=== PATIENT | male | born 1970 | race Caucasian/White ===

== ENCOUNTER 2025-01-18 15:43 | Day surgery (SDC) | payer OTHER, SELFPAY ==
[2025-01-18] MEDS ORDERED: ONDANSETRON 4 MG/2 ML VIAL ONE ×2 (15:58→19:30)
[2025-01-18] MEDS ORDERED: MORPHINE 4 MG/ML SYR ONE ×2 (15:59→19:06)
[2025-01-18] MEDS ORDERED: TDAP (DIPHTH,PERTUSS(ACELL),TET VAC) 0.5 ML VIAL IMVAC ONE (15:59)
[2025-01-18] MEDS ORDERED: NA CHLORIDE 0.9% 100 ML ONE (16:00)
[2025-01-18] MEDS ORDERED: CEFAZOLIN SODIUM 2 GM/VIAL ONE (16:00)
--- NOTE | 2025-01-18 17:15 | RAD REPORT ---
EXAMINATION: XR Femur Left CLINICAL INDICATION: Male, 54 years old. laceration TECHNIQUE: 2 view radiograph of the left femur were obtained. COMPARISON: No prior exam. FINDINGS: No evidence of fracture or dislocation. Normal alignment. No evidence of arthropathy or oth er focal bone lesion. Soft tissue defect and adjacent swelling along the anterior medial thigh soft tissues. This could possibly be dissecting towards the anteromedial cortex of the left femur at the j unction of the middle and distal thirds, as seen on the lateral view. IMPRESSION: Soft tissue defect related to known laceration along the distal anteromedial thigh. No acute osseous abnormality.
--- NOTE | 2025-01-18 19:01 | RAD REPORT ---
EXAM: CT Lower Ext Angio HISTORY: [facility] MAIN laceration, need CTA of lower extremity COMPARISON: None TECHNIQUE: Multiple contiguous axial images were obtained a CTA of the left lower extremity with cont rast per angiography protocol. Sagittal and coronal 3-D MIP reformats were performed. One or more of the following dose reduction techniques were used: Automated exposure control, adjustment of the m A and kV according to patient size, and iterative reconstruction. Unless otherwise specified, incidental findings do not require dedicated imaging follow-up. FINDINGS: PELVIS AND SOFT TISSUES: Laceration involving the anteromedial distal left thigh. Gas locules extendi ng along the superficial aspect of the vastus medialis muscle. Other visualized soft tissues and pelvic contents are unremarkable. Included distal abdominal aorta: Normal caliber without evidence of dissection or aneurysmal dilatati on. Iliac vessels: Patent left common, external, and internal iliac arteries. PRINT WASHER: Patent SFA: Patent Deep femoral artery: Patent Popliteal artery: Patent Trifurcation of anterior and posterior tibial and peroneal arteries: Patent proximally. No evidence of dissection or contrast extravasation IMPRESSION: No evidence of vascular injury or dissection with attention to the included left lower extremity artis rial structures. Laceration involving the anteromedial distal left thigh as above.
--- NOTE | 2025-01-18 19:08 | ER ---
Nurse's Notes [facility] Name: Nakia Miranda Age: 54 yrs Sex: Male : 1970 Arrival Date: 01/18/2025 Time: 15:43 Bed 19 Private MD: Diagnosis: Complex laceration to the left thigh with muscle body involvement Presentation: 01/18 15:48 Chief complaint: Patient states: cut his left mid thigh with chain saw. Coronavirus iw screen: At this time, the client does not indicate any symptoms associated with coronavirus-19. Ebola Screen: No symptoms or risks identified at this time. Initial Sepsis Screen: Does the patient meet any 2 criteria? No. Patient's initial sepsis screen is negative. Does the patient have a suspected source of infection? No. Patient's initial sepsis screen is negative. Risk Assessment: Do you want to hurt yourself or someone else? Patient reports no desire to harm self or others. Onset of symptoms was January 18, 2025. 15:48 Method Of Arrival: Wheelchair iw 15:48 Acuity: ANDERSON 2 iw Triage Assessment: 19:30 General: Behavior is calm, cooperative, appropriate for age. Injury Description: me1 Laceration sustained to medial aspect of left thigh and left leg is jagged. Historical: - Allergies: 15:48 No Known Allergies; iw 15:49 No Known Allergies; ll1 - Home Meds: 15:48 None [Active]; iw - PMHx: 15:48 None; iw 15:49 None; ll1 - PSHx: 15:48 None; iw 15:49 None; ll1 - Immunization history:: Last tetanus immunization: unknown. - Infectious Disease History:: Denies. - Family history:: not pertinent. - Social history:: Smoking status: unknown. Screenin:50 [facility] ED Fall Risk Assessment (Adult) History of falling in the last 3 months, me1 including since admission No falls in past 3 months (0 pts) Confusion or Disorientation No (0 pts) Intoxicated or Sedated No (0 pts) Impaired Gait No (0 pts) Mobility Assist Device Used No (0 pt) Altered Elimination No (0 pt) Score/Fall Risk Level 0 - 2 = Low Risk Maintained a safe environment, Provided non-skid footwear, Hourly rounding (assess needs \T\ fall precautionary measures) done. Abuse screen: Denies threats or abuse. Nutritional screening: No deficits noted. Tuberculosis screening: No symptoms or risk factors identified. Assessment: 15:50 General: Appears uncomfortable. Pain: Complains of pain in left quadriceps Pain does me1 not radiate. Pain currently is 10 out of 10 on a pain scale. Quality of pain is described as sharp, Pain began suddenly, Is continuous. Neuro: Level of Consciousness is awake, alert, obeys commands, Oriented to person, place, time, situation, Appropriate for age. Cardiovascular: Patient's skin is warm and dry. Respiratory: Airway is patent Respiratory effort is even, unlabored, Respiratory pattern is regular, symmetrical. GI: No signs and/or symptoms were reported involving the gastrointestinal system. : No signs and/or symptoms were reported regarding the genitourinary system. EENT: No signs and/or symptoms were reported regarding the EENT system. Derm: Skin is healthy with good turgor, Skin is pink, warm \T\ dry. Musculoskeletal: Reports pain in left quadriceps. Injury Description: Laceration sustained to left quadriceps is jagged. Vital Signs: 16:14 Pain 5/10; me1 17:00 BP 116 / 66; Pulse 77; Resp 16; Pulse Ox 98% ; me1 18:00 BP 115 / 82; Pulse 82; Resp 16; Pulse Ox 100% ; me1 19:00 BP 145 / 81; Pulse 78; Resp 16; Pulse Ox 100% ; me1 16:14 Pain Scale: Adult me1 ED Course: 15:44 Patient arrived in ED. im 15:45 Areli Dawkins RN is Primary Nurse. me1 15:45 Kuldeep Pereyra MD is Attending Physician. rt 15:47 Inserted saline lock: 18 gauge in right antecubital area, using aseptic technique. iw ,using aseptic technique. IV inserted by Pauline MITCHELL Blood collected. Flushed with 10 mL NS. 15:48 Triage completed. iw 15:50 No provider procedures requiring assistance completed. me1 15:50 Dressings: 4X4s X 3; medial aspect of left thigh wet to dry dressing until seen by ty pshysician. Irrigation of laceration on medial aspect of left thigh irrigated with normal saline Betadine solution Patient tolerated well. 15:50 Patient has correct armband on for positive identification. Bed in low position. Call me1 light in reach. Side rails up X 1. Provided Education on: POC. Verbalized understanding.. Client placed on continuous cardiac and pulse oximetry monitoring. NIBP monitoring applied. Pulse ox on. NIBP on. 16:39 Femur Left XRAY In Process Unspecified. EDMS 18:00 Lower Ext Angio In Process Unspecified. EDMS 19:07 Storm Lee MD is Hospitalizing Provider. rt 19:30 Patient admitted, IV remains in place. me1 19:30 Arm band placed on Patient placed in an exam room. me1 Administered Medications: 16:08 Drug: Ondansetron IVP 4 mg IVP once; over 2 minutes Route: IVP; Site: right antecubital;me1 16:14 Follow up: Response: No adverse reaction me1 16:08 Drug: ceFAZolin IVPB 2 grams IVPB once over 30 mins; (mix in 100 mL NS) Route: IVPB; me1 Infused Over: 30 mins; Site: right antecubital; 19:28 Follow up: Response: No adverse reaction; IV Status: Completed infusion me1 16:08 Drug: Boostrix Tdap IM 0.5 ml IM once; as a single dose Route: IM; Site: right deltoid; me1 16:15 Follow up: Response: No adverse reaction me1 16:09 Drug: morphine IVP or IV 4 mg IVP once over 4 mins Route: IVP; Infused Over: 4 mins; me1 Site: right antecubital; 16:14 Follow up: Pain 5/10 Adult; Response: No adverse reaction; Pain is decreased me1 19:10 Drug: morphine IVP or IV 4 mg IVP once over 4 mins Route: IVP; Infused Over: 4 mins; me1 Site: right antecubital; 19:28 Follow up: Response: No adverse reaction me1 Medication: 15:50 Vaccine Information Statement (VIS) provided today. Questions and/or concerns me1 addressed. VIS edition date: June 29, 2021. Outcome: 19:08 Decision to Hospitalize by Provider. rt 19:30 Admitted to OR accompanied by nurse, via stretcher, with chart, Report called to me1 Mimi James 19:30 Condition: stable 19:30 Instructed on the need for admit, 19:32 Patient left the ED. me1 Signatures: Dispatcher [employer] Concetta Hwang, RN RN Pauline Holt RN RN 1 Kuldeep Pereyra MD MD rt Mendoza, Itzel im Eddleman, Michelle, RN RN me1 Ildefonso Hendrickson
--- NOTE | 2025-01-18 19:08 | EDPHYS ---
Physician Documentation [facility] Name: Nakia Miranda Age: 54 yrs Sex: Male : 1970 Arrival Date: 01/18/2025 Time: 15:43 Bed 19 Private MD: ED Physician Kuldeep Pereyra HPI: 01/18 20:07 This 54 yrs old Male presents to ER via Wheelchair with complaints of Laceration To Leg.rt 20:07 Patient presents to the ED with a laceration to the left thigh. Patient was injured rt with a chainsaw, states that was bleeding profusely, did place a tourniquet. Denies other injury, acute complaints, symptoms are moderate in severity, no other aggravating alleviating factors. Historical: - Allergies: 15:48 No Known Allergies; iw 15:49 No Known Allergies; ll1 - Home Meds: 15:48 None [Active]; iw - PMHx: 15:48 None; iw 15:49 None; ll1 - PSHx: 15:48 None; iw 15:49 None; ll1 - Immunization history:: Last tetanus immunization: unknown. - Infectious Disease History:: Denies. - Family history:: not pertinent. - Social history:: Smoking status: unknown. ROS: 20:07 Neuro: Negative for headache, weakness, numbness, tingling, and seizure, rt 20:07 MS/extremity: Positive for laceration, pain, Negative for 20:07 Skin: Positive for laceration(s), Exam: 20:07 Constitutional: This is a well developed, well nourished patient who is awake, alert, rt and in no acute distress. Head/Face: Normocephalic, atraumatic. Chest/axilla: Normal chest wall appearance and motion. Nontender with no deformity. No lesions are appreciated. Cardiovascular: Regular rate and rhythm with a normal S1 and S2. No gallops, murmurs, or rubs. Normal PMI, no JVD. No pulse deficits. Respiratory: Lungs have equal breath sounds bilaterally, clear to auscultation and percussion. No rales, rhonchi or wheezes noted. No increased work of breathing, no retractions or nasal flaring. Abdomen/GI: Soft, non-tender, with normal bowel sounds. No distension or tympany. No guarding or rebound. No evidence of tenderness throughout. Neuro: Awake and alert, GCS 15, oriented to person, place, time, and situation. Cranial nerves II-XII grossly intact. Motor strength 5/5 in all extremities. Sensory grossly intact. Cerebellar exam normal. Normal gait. 20:07 Musculoskeletal/extremity: There is a large deep roughly 10 cm laceration to the distal left thigh proximal to the knee. Multiple muscle bodies appear to be involved, no active bleeding, dorsalis pedis pulses intact, sensation is intact distally. There is somewhat weak extensor strength.. Vital Signs: 16:14 Pain 5/10; me1 17:00 BP 116 / 66; Pulse 77; Resp 16; Pulse Ox 98% ; me1 18:00 BP 115 / 82; Pulse 82; Resp 16; Pulse Ox 100% ; me1 19:00 BP 145 / 81; Pulse 78; Resp 16; Pulse Ox 100% ; me1 16:14 Pain Scale: Adult me1 MDM: 15:46 Medical Screening Exam initiated rt 20:07 Differential diagnosis: Complex laceration, tendon, muscle laceration, arterial bleed. rt Data reviewed: vital signs, nurses notes. Consideration of Admission/Observation Patient was admitted/placed on observation. 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 I considered the following discharge prescriptions or medication management in the emergency department Medications were administered in the Emergency Department. See MAR. Independent interpretation of the following test(s) in the Emergency Department X-Ray: My interpretation is No fracture seen on my interpretation of x-ray images. Counseling: I had a detailed discussion with the patient and/or guardian regarding the historical points, exam findings, and any diagnostic results supporting the discharge/admit diagnosis, radiology results, the need for further work-up and treatment in the hospital. Response to treatment: There is no appreciated change of the patient's symptoms at this time. 01/18 15:51 Order name: Femur Left XRAY; Complete Time: 19:05 rt 01/18 17:44 Order name: Lower Ext Angio; Complete Time: 19:05 EDMS Administered Medications: 16:08 Drug: Ondansetron IVP 4 mg IVP once; over 2 minutes Route: IVP; Site: right antecubital;me1 16:14 Follow up: Response: No adverse reaction me1 16:08 Drug: ceFAZolin IVPB 2 grams IVPB once over 30 mins; (mix in 100 mL NS) Route: IVPB; me1 Infused Over: 30 mins; Site: right antecubital; 19:28 Follow up: Response: No adverse reaction; IV Status: Completed infusion me1 16:08 Drug: Boostrix Tdap IM 0.5 ml IM once; as a single dose Route: IM; Site: right deltoid; me1 16:15 Follow up: Response: No adverse reaction me1 16:09 Drug: morphine IVP or IV 4 mg IVP once over 4 mins Route: IVP; Infused Over: 4 mins; me1 Site: right antecubital; 16:14 Follow up: Pain 5/10 Adult; Response: No adverse reaction; Pain is decreased me1 19:10 Drug: morphine IVP or IV 4 mg IVP once over 4 mins Route: IVP; Infused Over: 4 mins; me1 Site: right antecubital; 19:28 Follow up: Response: No adverse reaction me1 Disposition Summary: 01/18/25 19:08 Hospitalization Ordered Notes: Hospitalization Status: Observation rt Provider: Storm Lee rt Condition: Stable rt Problem: new rt Symptoms: are unchanged rt Bed/Room Type: Standard rt Location: Telemetry/MedSurg (observation)(01/18/25 19:23) cg Room Assignment: 222(01/18/25 19:23) cg Diagnosis - Complex laceration to the left thigh with muscle body involvement rt Forms: - Medication Reconciliation Form rt - SBAR form rt - Leadership Thank You Letter rt Signatures: Dispatcher [employer] Concetta Hwang RN RN Arlette Ruggiero RN RN cg Pauline Mccormack RN RN ll1 Kuldeep Pereyra MD MD rt Areli Dawkins RN RN me1 Corrections: (The following items were deleted from the chart) 15:51 15:51 Femur Left+RAD.RAD.BRZ ordered. EDMS EDMS 17:44 16:52 CT LEFT KNEE WO CONTRAST ordered. EDMS EDMS 19:23 19:08 Operating Room rt cg 19:23 19:08 rt cg
[2025-01-18] MEDS ORDERED: FENTANYL CITR 100 MCG/2 ML ONE (19:29)
[2025-01-18] MEDS ORDERED: MIDAZOLAM HCL 2 MG/2 ML INJ ONE (19:29)
[2025-01-18] MEDS ORDERED: propofoL 200 MG/20 ML VIAL IV ONE (19:29)
[2025-01-18] MEDS ORDERED: KETOROLAC 30 MG/ML INJ ONE (19:30)
[2025-01-18] MEDS ORDERED: LIDOCAINE 1% MPF 5 ML VIAL ONE (19:30)
[2025-01-18] MEDS ORDERED: dexAMETHasone 4 MG/ML VIAL ONE (19:30)
[2025-01-18] MEDS: Ringers Lactate 1,000 ML IV ONE (19:43)
--- NOTE | 2025-01-18 20:13 | P.HP ---
Date of Service: 01/18/25 PC: This 54-year-old male presents to the emergency room after sustaining an injury with his chainsaw to his left thigh. HPC: Patient was at work, using a chainsaw. Chainsaw got caught in some holly and jumped striking him in the left thigh. Had quite a lot of bleeding at the scene, was brought to the emergency room for evaluation and treatment. PSHx: Negative PMHx: Negative Social Hx: No known allergies Sys R: No cough, wheeze, shortness of breath. No chest pain or palpitations. Denies any urinary complaints O/E: Awake alert vital signs are stable HEENT: Negative Chest: Air entry equal bilaterally. Abd: Negative [place]: Laceration to the anterior portion of the left thigh. Measures roughly 5 inches long. Not actively bleeding at this time. Appears to be missing a bridge of skin approximately half an inch wide. Patient has normal pulses, and normal sensation to his left lower leg. Data: CT scan shows major vessels intact Impression: Traumatic injury to the left thigh Plan: I will taken the operating room for exploration, and debridement of this complex laceration to the left thigh. The risks of this procedure have been discussed. The possibility of bleeding, infection, physical impairment and scar formation were outlined. The need to miss work, rehab, and possible further surgeries and procedures were outlined. He understands and his is here as well. He is very anxious to go home after surgery. Will follow-up with me in my office.
--- NOTE | 2025-01-18 21:20 | P.OP ---
Preoperative diagnosis: Extensive traumatic laceration to the left thigh Postoperative diagnosis: The same Primary procedure: Exploration and sharp debridement of the traumatic laceration to the left t Secondary procedure: Irrigation Anesthesia: General Estimated blood loss: Less than 10 cc Specimen: Necrotic skin and fat was not sent Operative Technique: The patient brought the operating room and placed supine on the table. After the induction of adequate general endotracheal anesthesia, the area of the left thigh was prepped with a Betadine solution, draped in the usual aseptic manner. Attention was turned towards the left thigh. On the midportion of the thigh on the anterior medial portion extending laterally for approximately 15 cm there was an open wound. There is a gap of about half an inch between the 2 skin edges where the skin has been torn away. The skin edge itself showed maceration and the scalping from the underlying tissue. The wound itself showed an abruption of the muscle, with the fascia being split anteriorly. We traced the cut in the muscle down, but it extended only through the vastus medialis. At this point the skin edges were sharply debrided using a scalpel and a cutting Bovie. The skin edges having been freshened for the full length of the wound both top and bottom, the underlying tissue was now irrigated with the pulse lavage. We used about 600 cc of iodine solution. There was some necrotic remnants of the tree/dirt on the lateral aspect of the wound. This was sharply debrided with a knife and a Metzenbaum scissors. Once again the wound edges were irrigated. Bleeding vessels were controlled using hemostats and silk ties. Judicious use of the Bovie was also utilized. At this point the wound was again inspected. The underlying muscle was loosely approximated using interrupted sutures of PDS. The fascia overlying the muscle was now again approximated using PDS to bring it together, but not to seal it completely to avoid any compartment syndrome. The subcutaneous tissue was again inspected. A large venous branch on the inferior portion was ligated using a silk ligature. The skin was now loosely approximated with chromic sutures. [place] were applied to the skin. At this point 0.25% Marcaine was infiltrated above and below to try to provide for field block of the actual and wound itself. At the end of the procedure a sterile dressing was applied. He was in a stable condition at the end of the procedure. Needle sponge instrument count were correct. No drains were placed. A sterile dressing hav ing been applied.
[2025-01-18] MEDS: HYDROCODONE/APAP 10/325 TAB ONE (21:39)
[2025-01-18 21:46] VITALS: BP 121/69; TEMP 97.9; O2SAT 99
== END 2025-01-18 22:37 | disposition home or self-care (01) ==
LOC: ER 15:43 → DS 19:08 → ER 19:08 → DS 19:08 → ER 22:37 → DS 22:37
PROVIDERS: ATTEND Surgery
PROC: 0KQR0ZZ Repair Left Upper Leg Muscle, Open Approach (ICD-10-PCS; principal; 2025-01-18 20:00)
DX: S71.122A Laceration with foreign body, left thigh, initial encounter (principal); W29.3XXA Contact with powered garden and outdoor hand tools and machinery, initial encounter; Y93.89 Activity, other specified; Y92.9 Unspecified place or not applicable; Y99.0 Civilian activity done for income or pay; Z23 Encounter for immunization
CPT/HCPCS: 13121; 13122 ×2; 96365; 73706; 73552; 96375; 96372; 99285; 96366; Q9967; J2704; J1100; J2003; J2250; J3010; J2405 ×2; J7120